=== PATIENT | female | born 1990 | race Caucasian/White ===

== ENCOUNTER 2016-10-06 11:16 | Emergency (ER) | payer MEDICAID, MEDICARE ==
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
[2016-10-06] MEDS ORDERED: Famotidine 20 MG/2 ML SDV IVPUSH ONE (11:39)
[2016-10-06] MEDS ORDERED: GI Cocktail Oral Solution 30 ML PO ONE (11:39)
[2016-10-06] MEDS ORDERED: Sodium Chloride 0.9% 10 ML Syringe FLUSH PRN (11:39)
[2016-10-06] MEDS ORDERED: Pantoprazole 40 MG Vial IVPUSH ONE (11:39)
[2016-10-06 12:08] LABS: CHLORIDE,CL 105 mmol/L (98-107); SODIUM,NA 143 mmol/L (136-145)
[2016-10-06 12:17] VITALS: BP 140/76
== END 2016-10-06 13:00 | disposition home or self-care (01) ==
LOC: LL.ED 11:16
DX: K21.9 Gastro-esophageal reflux disease without esophagitis (principal); G80.2 Spastic hemiplegic cerebral palsy; D64.9 Anemia, unspecified; Z72.0 Tobacco use; Z79.899 Other long term (current) drug therapy; F41.8 Other specified anxiety disorders
CPT/HCPCS: 36415; 74022; 80053; 81001; 82150; 83605; 83690; 83735; 84550; 84703; 85025; 85610; 85730; 86318; 87086; 99283; A9270; C9113; 96374; 96375; 99284; S0028

== ENCOUNTER 2018-01-15 05:37 | Emergency (ER) | payer MEDICARE, MEDICAID ==
[2018-01-15 05:49] VITALS: BP 120/69
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
== END 2018-01-15 06:35 | disposition home or self-care (01) ==
LOC: LL.ED 05:37
DX: G80.2 Spastic hemiplegic cerebral palsy (principal); F41.8 Other specified anxiety disorders; H92.01 Otalgia, right ear; K21.9 Gastro-esophageal reflux disease without esophagitis; J06.9 Acute upper respiratory infection, unspecified; Z79.899 Other long term (current) drug therapy; Z77.22 Contact with and (suspected) exposure to environmental tobacco smoke (acute) (chronic); Z71.6 Tobacco abuse counseling
CPT/HCPCS: 87081; 87430; 99282; 99283

== ENCOUNTER 2018-04-23 17:48 | Emergency (ER) | payer MEDICARE, MEDICAID ==
[2018-04-23 18:06] VITALS: BP 133/68
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
== END 2018-04-23 19:02 | disposition home or self-care (01) ==
LOC: LL.ED 17:48
DX: S92.352A Displaced fracture of fifth metatarsal bone, left foot, initial encounter for closed fracture (principal); Z79.899 Other long term (current) drug therapy; Z77.22 Contact with and (suspected) exposure to environmental tobacco smoke (acute) (chronic); W19.XXXA Unspecified fall, initial encounter
CPT/HCPCS: 73610-LT; 73630-LT; 99283

== ENCOUNTER 2019-01-03 13:30 | Emergency (ER) | payer MEDICAID, MEDICARE ==
[2019-01-03 13:39] VITALS: BP 123/63
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
== END 2019-01-03 14:50 | disposition home or self-care (01) ==
LOC: LL.ED 13:30
DX: S99.912A Unspecified injury of left ankle, initial encounter (principal); E66.9 Obesity, unspecified; F41.9 Anxiety disorder, unspecified; F32.9 Major depressive disorder, single episode, unspecified; Z90.49 Acquired absence of other specified parts of digestive tract; Z77.22 Contact with and (suspected) exposure to environmental tobacco smoke (acute) (chronic); Z79.899 Other long term (current) drug therapy; W19.XXXA Unspecified fall, initial encounter
CPT/HCPCS: 73610-LT; 73630-LT; 99283-25

== ENCOUNTER 2020-04-24 17:57 | Emergency (ER) | payer MEDICARE ==
[2020-04-24] MEDS ORDERED: Sodium Chloride 0.9% 10 ML Syringe FLUSH PRN (18:12)
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
[2020-04-24 19:03] VITALS: PULSE 81
[2020-04-24 19:25] LABS: CHLORIDE,CL 105 mmol/L (98-107); SODIUM,NA 138 mmol/L (136-145)
[2020-04-24] MEDS: GI Cocktail Oral Solution 30 ML PO ONE (19:26)
[2020-04-25 05:39] VITALS: BP 121/79
== END 2020-04-24 19:40 | disposition home or self-care (01) ==
LOC: LL.ED 17:57
DX: R07.89 Other chest pain (principal); F41.9 Anxiety disorder, unspecified; F32.9 Major depressive disorder, single episode, unspecified; Z79.899 Other long term (current) drug therapy
CPT/HCPCS: 36415; 71046; 80053; 83735; 83880; 84484; 85025; 85379; 93005; 99285-25

== ENCOUNTER 2020-11-21 17:25 | Emergency (ER) | payer MEDICARE ==
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
[2020-11-21 18:02] LABS: CHLORIDE,CL 105 mmol/L (98-107); SODIUM,NA 142 mmol/L (136-145)
[2020-11-21] MEDS ORDERED: Iopamidol 755 Mg/ML 100 ML Bottle ONE (18:04)
[2020-11-21] MEDS: Iopamidol 755 Mg/ML 100 ML Bottle IVPUSH STA (18:30)
[2020-11-21] MEDS: Acetaminophen/HYDROcodone 325-5 MG Tab PO ONE (19:50)
[2020-11-21] MEDS: methylPREDNISolone Sodium Succinate 125 MG/2 ML SDV IV ONE (19:51)
[2020-11-21] MEDS: Ketorolac 15 MG/ML SDV IVPUSH ONE (19:51)
[2020-11-21] MEDS: Sodium Chloride 0.9% 10 ML Syringe FLUSH PRN (19:53)
[2020-11-21 22:08] VITALS: BP 138/70; PULSE 88
== END 2020-11-21 20:05 | disposition home or self-care (01) ==
LOC: LL.ED 17:25
DX: R07.89 Other chest pain (principal); E66.9 Obesity, unspecified; Z68.36 Body mass index [BMI] 36.0-36.9, adult
CPT/HCPCS: 36415; 71045; 71275; 80053; 83605; 83735; 83880; 84484; 85025; 85379; 85610; 85730; 86140; 93005; 93010; 96374; 96375; 99284; 99285-25; A9270-GY; J1885; J2930; Q9967

== ENCOUNTER 2021-02-15 14:16 | Emergency (ER) | payer MEDICARE, OTHER ==
[2021-02-15] MEDS ORDERED: Ketorolac 30 MG/ML SDV IVPUSH ONE (14:41)
[2021-02-15] MEDS ORDERED: Ondansetron 4 MG/2 ML SDV IVPUSH ONE (14:41)
[2021-02-15] MEDS ORDERED: Sodium Chloride 0.9% 1,000 ML IV ONE ×2 (14:41→16:48)
[2021-02-15] MEDS: Sodium Chloride 0.9% 10 ML Syringe FLUSH PRN ×2 (14:49→16:48)
[2021-02-15 15:00] LABS: CHLORIDE,CL 106 mmol/L (98-107); SODIUM,NA 144 mmol/L (136-145)
[2021-02-15] MEDS ORDERED: Morphine 2 MG/ML SYRINGE IVPUSH ONE (15:03)
[2021-02-15] MEDS ORDERED: Iopamidol 612 MG/ML 100 ML Bottle IVPUSH STA (15:24)
[2021-02-15] MEDS ORDERED: Iopamidol 612 MG/ML 100 ML Bottle ONE (15:29)
[2021-02-15] MEDS ORDERED: Morphine 4 MG/ML Syringe IVPUSH ONE (16:28)
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
[2021-02-15 17:14] VITALS: BP 129/66; PULSE 91
== END 2021-02-15 17:23 ==
LOC: LL.ED 14:16
DX: K35.30 Acute appendicitis with localized peritonitis, without perforation or gangrene (principal); K21.9 Gastro-esophageal reflux disease without esophagitis; E66.9 Obesity, unspecified; Z68.30 Body mass index [BMI] 30.0-30.9, adult; Z86.16 Personal history of COVID-19
CPT/HCPCS: 36415; 74177; 80053; 82150; 83605; 83690; 83735; 85025; 85652; 86140; 96374; 96375; 96376; 99285; J1885; J2270; J2405; J7030; Q9967; 99284

== ENCOUNTER 2023-12-10 20:56 | Emergency (ER) | payer MEDICARE ==
[2023-12-10] MEDS: Ketorolac 30 MG/ML SDV IM ONE (21:09)
[2023-12-10 21:42] VITALS: BP 130/84; PULSE 80
== END 2023-12-10 21:25 | disposition home or self-care (01) ==
LOC: LL.ED 20:56
DX: K08.89 Other specified disorders of teeth and supporting structures (principal); Z79.899 Other long term (current) drug therapy
CPT/HCPCS: 96372; 99282; J1885